=== PATIENT | female | born 1940 | race African-American/Black ===

== ENCOUNTER 2018-02-11 06:08 | Emergency (ER) | payer OTHER ==
[2018-02-11 06:51] VITALS: PULSE 95; TEMP 99; BMI 34.0
--- NOTE | 2018-02-11 07:22 | PDOC ---
History of Present Illness - General History Source: Patient, Family Exam Limitations: Language Barrier - History of Present Illness Initial Comments: 02/11/18 07:16 Pt is a 77yo F with PMH of HTN, DM, taking ASA presenting to ED with complaints of nosebleed. Pt says had intermittent nosebleeds for the past 3 days. Last episode was 2 years ago. Pt says that she has used "many tissues". She has been tilting her head back trying to stop the bleeds. She also admits to vomiting blood. She denies lightheadedness, chest pain, palpitations, blood in stool, nausea, diarrhea, fevers, chills, recent illnesses, syncope. PMD: Din PMH: see hpi PSH: knee surgery Meds: see med rec Social: denies Allergies: nkda <Zaria aClixto - Last Filed: 02/11/18 08:39> <Richard Mitchell - Last Filed: 02/11/18 08:56> - General Chief Complaint: Blood Pressure Problem Stated Complaint: BLOOD PRESSURE PROBLEM Time Seen by Provider: 02/11/18 06:58 Past History - Past Medical History Anemia: No Asthma: No Cancer: No Cardiac Disorders: No CVA: No COPD: No CHF: No Dementia: No Diabetes: Yes (DX 2005) GI Disorders: No Disorders: No HTN: Yes (DX 2005) Hypercholesterolemia: No Liver Disease: No Seizures: No Thyroid Disease: No - Surgical History Abdominal Surgery: Yes (? BLOOD CLOT REMOVED) Appendectomy: No Cardiac Surgery: No Cholecystectomy: No Lung Surgery: No Neurologic Surgery: No Orthopedic Surgery: Yes (LEFT KNEE REPLACEMENT-2008) - Suicide/Smoking/Psychosocial Hx Smoking History: Never smoked Have you smoked in the past 12 months: No Hx Alcohol Use: No Drug/Substance Use Hx: No Substance Use Type: None Hx Substance Use Treatment: No <Zaria Calixto - Last Filed: 02/11/18 08:39> <Richard Mitchell - Last Filed: 02/11/18 08:56> - Past Medical History Allergies/Adverse Reactions: Allergies Allergy/AdvReac Type Severity Reaction Status Date / Time No Known Drug Allergies Allergy Verified 10/27/15 07:06 Home Medications: Ambulatory Orders Enalapril Maleate [Vasotec] 20 mg PO BID 10/20/15 Hydrochlorothiazide [Hctz -] 12.5 mg PO DAILY 10/20/15 Metoprolol Succinate [Toprol XL -] 100 mg PO DAILY 10/20/15 Aspirin [ASA -] 81 mg PO DAILY@0800 02/11/18 Atorvastatin Ca [Lipitor] 10 mg PO DAILY 02/11/18 Docusate Sodium [Colace] 100 mg PO DAILY 02/11/18 Linagliptin [Tradjenta] 5 mg PO DAILY 02/11/18 Oxymetazoline 0.05% Nasal Soln [Afrin -] 1 spray NS ONCE #1 spraybtl 02/11/18 Sitagliptin Phos/Metformin HCl [Janumet 50-500 mg Tablet] 1 each PO DAILY Review of Systems - Review of Systems Constitutional: No: Chills, Fever, Weakness HEENTM: Yes: See HPI, Nose Bleeding. No: Recent change in vision, Double Vision , Nose Pain, Nose Congestion, Mouth Pain Respiratory: Yes: Shortness of Breath. No: Cough, Productive cough, Hemoptysis Cardiac (ROS): No: Chest Pain, Lightheadedness, Palpitations, Syncope ABD/GI: Yes: Vomiting (with blood). No: Constipated, Diarrhea, Rectal Bleeding , Abdominal cramping, Tarry Stools : No: Symptoms Reported Musculoskeletal: No: Back Pain, Joint Pain, Muscle Pain Integumentary: No: Symptoms Reported Neurological: No: Headache, Numbness, Tingling, Tremors, Weakness <Zaria Calixto - Last Filed: 02/11/18 08:39> *Physical Exam - Vital Signs Last Vital Signs Temp Pulse Resp BP Pulse Ox 99 F 95 H 17 178/77 H 97 02/11/18 06:10 02/11/18 06:10 02/11/18 06:10 02/11/18 06:10 02/11/18 06:10 - Physical Exam General Appearance: Yes: Nourished, Appropriately Dressed. No: Apparent Distress HEENT: positive: EOMI, KERRY, TMs Normal, Other (no blood in orophaynx, L nasal turbinate inflammation, not actively bleeding. ). negative: Pale Conjunctivae, Pharyngeal Erythema, Nasal Congestion, Rhinorrhea, Sinus Tenderness Neck: positive: Trachea midline, Supple. negative: Lymphadenopathy (R), Lymphadenopathy (L) Respiratory/Chest: positive: Lungs Clear, Normal Breath Sounds. negative: Crackles, Rales, Rhonchi, Stridor, Wheezing Vascular Pulses: Carotid (R): 2+, Carotid (L): 2+, Dorsalis-Pedis (R): 2+, Doralis-Pedis (L): 2+ Gastrointestinal/Abdominal: positive: Normal Bowel Sounds, Soft. 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 NML intact, Fully Oriented, Alert, Normal Mood/ Affect, Normal Response, Motor Strength 5/5 <Zaria Calixto - Last Filed: 02/11/18 08:39> - Vital Signs Last Vital Signs Temp Pulse Resp BP Pulse Ox 99 F 95 H 16 169/89 97 02/11/18 06:10 02/11/18 07:50 02/11/18 07:50 02/11/18 07:50 02/11/18 07:50 <Richard Mitchell - Last Filed: 02/11/18 08:56> Moderate Sedation - Procedure Monitoring Vital Signs: Procedure Monitoring Vital Signs Temperature 99 F 02/11/18 06:10 Pulse Rate 95 H 02/11/18 06:10 Respiratory Rate 17 02/11/18 06:10 Blood Pressure 178/77 H 02/11/18 06:10 O2 Sat by Pulse Oximetry (%) 97 02/11/18 06:10 <Zaria Calixto - Last Filed: 02/11/18 08:39> - Procedure Monitoring Vital Signs: Procedure Monitoring Vital Signs Temperature 99 F 02/11/18 06:10 Pulse Rate 95 H 02/11/18 07:50 Respiratory Rate 16 02/11/18 07:50 Blood Pressure 169/89 02/11/18 07:50 O2 Sat by Pulse Oximetry (%) 97 02/11/18 07:50 <Richard Mitchell - Last Filed: 02/11/18 08:56> ED Treatment Course - LABORATORY CBC & Chemistry Diagram: 02/11/18 07:42 02/11/18 07:42 <Zaria Calixto - Last Filed: 02/11/18 08:39> - LABORATORY CBC & Chemistry Diagram: 02/11/18 07:42 02/11/18 07:42 - ADDITIONAL ORDERS Additional order review: Laboratory Results 02/11/18 07:42 PT with INR 11.40 INR 0.97 02/11/18 07:42 RBC 3.57 L MCV 94.6 MCHC 34.6 RDW 13.3 MPV 8.7 Neutrophils % 75.6 Lymphocytes % 16.4 Monocytes % 6.8 Eosinophils % 0.7 Basophils % 0.5 - Medications Given in the ED: ED Medications Discontinued Medications Generic Name Dose Route Start Last Admin Trade Name Madhu PRN Reason Stop Dose Admin Oxymetazoline HCl 1 spray 02/11/18 08:15 02/11/18 08:33 Afrin - NS 02/11/18 08:16 1 spray ONCE ONE Administration Petrolatum 1 applic 02/11/18 08:15 02/11/18 08:34 Vaseline TP 02/11/18 08:16 1 applic ONCE ONE Administration <PaulaRichard - Last Filed: 02/11/18 08:56> Medical Decision Making - Medical Decision Making 02/11/18 07:20 Pt is a 77yo F with PMH of HTN, DM, on Coumadin presenting to ED with complaints of nosebleed. Pt says had intermittent nosebleeds for the past 3 days. Last episode was 2 years ago. Pt says that she has used "many tissues". She has been tilting her head back trying to stop the bleeds. She also admits to vomiting blood. She denies lightheadedness, chest pain, palpitations, blood in stool, nausea, diarrhea, fevers, chills, recent illnesses, syncope. Vitals: hypertensive 178/77 but asymptomatic, otherwise wnl PE: inflammed L nasal turbinate, not actively bleeding at this time. No blood in oropharynx Ddx: anterior nose bleed v. posterior nosebleed, hypertensive urgency v. emergency Pt not actively bleeding at this time. Alert and ambulatory. Not complaining of chest pain, or palpitations. Is not exhibiting signs or symptoms of acute blood loss or hypertensive urgency/emergency. hematemesis most likely from swallowing blood. Pt son originally said that pt is taking Coumadin however not in the bag that patient brought with her that has her medications. Will check basic labs and INR. Will apply vaseline to L nostril and Afrin spray. Will dc with Rx for Afrin. <Zaria Calixto - Last Filed: 02/11/18 08:39> *DC/Admit/Observation/Transfer <Zaria Calixto - Last Filed: 02/11/18 08:39> <Richard Mitchell - Last Filed: 02/11/18 08:56> Diagnosis at time of Disposition: Nosebleed - Discharge Dispostion Disposition: HOME Condition at time of disposition: Good - Prescriptions Prescriptions: Oxymetazoline 0.05% Nasal Soln [Afrin -] 1 spray NS ONCE #1 spraybtl - Referrals Referrals: Edith Enriquez MD [Primary Care Provider] - Ronnell Santo MD [Staff Physician] - - Patient Instructions Printed Discharge Instructions: DI for Nosebleed Additional Instructions: You were seen here today for nosebleed. It is not bleeding at this time. When you have a nosebleed, remember to pinch your nose tightly. DO NOT TILT YOUR HEAD BACK. DO NOT BLOW YOUR NOSE. You have been given a prescription for a nasal spray. [place] it once or twice in your nostrils daily. You can also keep a humidifier at home to keep moisture in your nose. I recommend seeing your doctor for management of blood pressure. If you continue to have nosebleeds, you can see an ENT doctor: Dr. Santo . You also need to have your blood pressure re-checked by your primary doctor, as it was slightly elevated today. Uncontrolled blood pressure can eventually lead to kidney disease, heart disease, other serious illness, disability, or even . Come back to the emergency room if you have a massive nosebleed, you feel lightheaded, you have chest pain, you pass out, or if any new concerning symptom develops. Thank you - Post Discharge Activity
[2018-02-11 07:52] VITALS: BP 169/89
[2018-02-11] MEDS ORDERED: PETROLATUM, WHITE 30 GM TUBE TP ONE (08:15)
[2018-02-11] MEDS ORDERED: OXYMETAZOLINE 0.05% NASAL SOLUTION 15 ML BOTTLE NS ONE (08:15)
--- NOTE | 2018-02-11 08:25 | PDOC ---
Attending Attestation - Resident Resident Name: MarilyZaria - ED Attending Attestation I have performed the following: I have examined & evaluated the patient, The case was reviewed & discussed with the resident, I agree w/resident's findings & plan, Exceptions are as noted - HPI HPI: 02/11/18 08:22 77 F with HTN, DM presenting with intermittent nosebleeds x 3 days. Pt reports going through several tissues. Denies any profuse bleeding from nose. States the episodes last about 15 minutes each. Denies CP/SOB/palpitations/ lightheadedness. No trauma to nose or face. Pt is on ASA 81mg, no other blood thinners. - Physicial Exam PE: 02/11/18 08:23 "GENERAL: Awake, alert, and fully oriented, in no acute distress. HEAD: No signs of trauma EYES: PERRLA, EOMI, sclera anicteric, conjunctiva clear ENT: + dried blood in nares, no active bleeding NECK: Nontender, no stepoffs, Normal ROM, supple, no lymphadenopathy, JVD, or masses LUNGS: Breath sounds equal, clear to auscultation bilaterally. No wheezes, and no crackles HEART: Regular rate and rhythm, normal S1 and S2, no murmurs, rubs or gallops ABDOMEN: Soft, nontender, normoactive bowel sounds. No guarding, no rebound. No masses EXTREMITIES: Normal range of motion, no edema. No clubbing or cyanosis. No cords, erythema, or tenderness NEUROLOGICAL: Cranial nerves II through XII intact. 5/5 strength and sensation in all extremities, Normal speech, normal gait, normal cerebellar function SKIN: Warm, Dry, normal turgor, no rashes or lesions noted. - Medical Decision Making 02/11/18 08:24 77 F with intermittent epistaxis x 3 days, not actively bleeding. Pt HD stable but mildly tachycardic. No symptoms of anemia. Will check basic labs and coags. - Labs, coags - Afrin spray 02/11/18 10:10 Labs wnl Pt continues to appear well with no active epistaxis Pt is well appearing, with normal vitals. Clinically stable for DC at this time. I discussed the physical exam findings, ancillary test results and final diagnoses with the patient. I answered all of the patient's questions. The patient was satisfied with the care received and felt comfortable with the discharge plan and treatment plan. The patient agrees to follow up with the primary care physician within 24-72 hours.
[2018-02-11 08:39] LABS: BASO % 0.5 % (0-2.0); EOS % 0.7 % (0-4.5); HEMATOCRIT 33.8 % (32.4-45.2); HEMOGLOBIN 11.7 GM/dL (10.7-15.3); LYMPH % 16.4 % (8-40); MCH 32.8 pg (25.7-33.7); MCHC 34.6 g/dl (32.0-36.0); MEAN CELL VOLUME 94.6 fl (80-96); MEAN PLT VOLUME 8.7 fl (7.5-11.1); MONO % 6.8 % (3.8-10.2); NEUT % 75.6 % (42.8-82.8); PLATELET COUNT 340 K/MM3 (134-434); RBC 3.57 M/mm3 (3.60-5.2); RDW 13.3 % (11.6-15.6); WHITE BLOOD COUNT 7.5 K/mm3 (4.0-10.0)
[2018-02-11 08:54] LABS: INR 0.97 (0.83-1.09); PROTHROMBIN TIME (PATIENT) 11.4 SEC (9.7-13.0)
[2018-02-11 09:34] LABS: ALBUMIN 3.6 g/dl (3.4-5.0); ALK PHOS 98 U/L (45-117); ANION GAP 11 MMOL/L (8-16); BILIRUBIN,TOTAL 0.2 mg/dL (0.2-1); BLOOD UREA NITROGEN 15 mg/dL (7-18); CALCIUM 8.6 mg/dL (8.5-10.1); CHLORIDE 107 mmol/L (98-107); CO2 24 mmol/L (21-32); CREATININE 1.1 mg/dL (0.55-1.3); GLUCOSE,RANDOM 122 mg/dL (74-106); POTASSIUM 4.1 mmol/L (3.5-5.1); SGOT/AST 17 U/L (15-37); SGPT/ALT 18 U/L (13-61); SODIUM 141 mmol/L (136-145)
== END 2018-02-11 09:38 | disposition home or self-care (01) ==
LOC: JER 06:08
PROC: 093K7ZZ Control Bleeding in Nasal Mucosa and Soft Tissue, Via Natural or Artificial Opening (ICD-10-PCS; principal; 2018-02-11)
DX: R04.0 Epistaxis (principal); I10 Essential (primary) hypertension; E11.9 Type 2 diabetes mellitus without complications; Z79.84 Long term (current) use of oral hypoglycemic drugs; Z79.82 Long term (current) use of aspirin; M25.562 Pain in left knee
CPT/HCPCS: 30901; 36415; 80053; 85025; 85610; 99283-25